=== PATIENT | female | born 1995 | race African-American/Black ===

== ENCOUNTER 2023-02-15 16:06 | Emergency (ER) | payer MEDICAID ==
[~2023-02-15] VITALS: Ht 157.5 cm; Wt 82.0 kg
[2023-02-15 16:21] VITALS: PULSE 108
[2023-02-15 16:33] VITALS: BP 126/82; RESP 16; TEMP 99; O2SAT 99
== END 2023-02-15 19:35 | disposition home or self-care (01) ==
LOC: ER 16:06
DX: H00.11 Chalazion right upper eyelid (principal); Z88.8 Allergy status to other drugs, medicaments and biological substances; Z98.890 Other specified postprocedural states
CPT/HCPCS: 99282

== ENCOUNTER 2023-09-07 00:55 | Emergency (ER) | payer MEDICAID ==
[~2023-09-07] VITALS: Ht 167.6 cm; Wt 82.0 kg
[2023-09-07 01:00] VITALS: O2SAT 99
[2023-09-07 01:26] LABS: BASOPHILS % 0.4 % (0.0-2.0); CHLORIDE 107 mEq/L (98-107); DIFFERENTIAL COMMENT 0; HEMATOCRIT. 37.9 % (36.0-48.0); HEMOGLOBIN. 12.5 g/dL (12.0-16.0); LYMPHOCYTES % 29.1 % (20.0-50.0); MEAN CORPUSCULAR HEMOGLOBIN 23.5 pg (28.0-32.0); MEAN CORPUSCULAR HGB CONC 32.9 g/dL (31.0-37.0); MEAN CORPUSCULAR VOLUME 71.2 fL (81.0-99.0); MEAN PLATELET VOLUME 8.6 fl (7.4-10.4); NEUTROPHILS % 63.5 % (40.0-76.0); PLATELET 236 x1000/uL (130-400); POTASSIUM 3.7 mEq/L (3.5-5.1); RED BLOOD CELL COUNT 5.32 mill/uL (4.2-5.4); RED CELL DISTRIBUTION WIDTH 14.4 % (11.6-14.6); SODIUM 137 mEq/L (136-145); WHITE BLOOD COUNT 6.7 x1000/uL (4.5-11.0)
[2023-09-07 01:27] LABS: CARBON DIOXIDE 21 mEq/L (21-32)
[2023-09-07] MEDS ORDERED: ACTIVATED CHARCOAL 50 G/240 ML TUBE PO ONE (01:30)
[2023-09-07 01:32] LABS: CREATININE 0.9 mg/dL (0.6-1.0); GLUCOSE 89 mg/dL (70-105)
[2023-09-07 01:33] LABS: ETHANOL BLOOD < 10 mg/dL (<10); UREA NITROGEN BLOOD 14 mg/dL (9-23)
[2023-09-07 01:34] LABS: ALANINE AMINOTRANSFERASE 16 IU/L (10-49)
[2023-09-07 01:35] LABS: ACETAMINOPHEN < 2 ug/mL (10-30); ALBUMIN 4.3 g/dL (3.2-4.8); AMMONIA < 17 uMol/L (<32); ASPARTATE AMINOTRANSFERASE 15 IU/L (<34); BILIRUBIN TOTAL 0.4 mg/dL (0.1-1.0); HCG SCREEN NEGATIVE; PROTEIN TOTAL 7.2 g/dL (6.0-8.3)
[2023-09-07] MEDS: SODIUM CHLORIDE 0.9% 1,000 ML IV ONE (02:04)
[2023-09-07] MEDS: ACTIVATED CHARCOAL 50 G/240 ML TUBE PO NR (02:11)
[2023-09-07 02:18] LABS: CLARITY URINE CLOUDY (CLEAR); COLOR URINE YELLOW (YELLOW); GLUCOSE URINE NEGATIVE (NEGATIVE); KETONES URINE TRACE (NEGATIVE); LEUKOCYTE ESTERASE URINE TRACE (NEGATIVE); NITRITE URINE NEGATIVE (NEGATIVE); OCCULT BLOOD URINE 2+ (NEGATIVE); PH URINE 5.5 (4.5-8.0); PROTEIN URINE NEGATIVE (NEGATIVE); SPECIFIC GRAVITY URINE 1.023 (1.005-1.030)
[2023-09-07 02:27] LABS: *AMPHETAMINES SCREEN URINE NEGATIVE (NEGATIVE); *BARBITURATES SCREEN URINE NEGATIVE (NEGATIVE); *BENZODIAZEPINES SCREEN URINE NEGATIVE (NEGATIVE); *COCAINE SCREEN URINE NEGATIVE (NEGATIVE)
[2023-09-07 02:28] LABS: CANNABINOID URINE SCREEN PRESUMPTIVE POSITIVE (NEGATIVE); ECSTASY MDMA SCREEN URINE NEGATIVE (NEGATIVE); METHADONE URINE SCREEN NEGATIVE (NEGATIVE); OPIATES URINE SCREEN NEGATIVE (NEGATIVE); PHENCYCLIDINE URINE SCREEN NEGATIVE (NEGATIVE)
[2023-09-07 05:20] LABS: SQUAMOUS EPITHELIAL CELL URINE 3+ /lpf (RARE/1+)
[2023-09-07 05:25] LABS: BACTERIA URINE 2+
[2023-09-07] MEDS: IBUPROFEN 800MG TABLET PO ONE (23:58)
[2023-09-07] MEDS: LORAZEPAM 2MG/ML INJ IM ONE (23:58)
[2023-09-08] MEDS: LORAZEPAM 2MG/ML INJ IM ONE (19:59)
[2023-09-08] MEDS: DIPHENHYDRAMINE 50MG/ML VIAL IM ONE (19:59)
[2023-09-08] MEDS: HALOPERIDOL LACTATE 5MG/ML VIAL IM ONE (19:59)
[2023-09-08] MEDS: IBUPROFEN 800MG TABLET PO ONE (21:25)
[2023-09-09] MEDS: ACETAMINOPHEN 325MG TABLET PO ONE (16:57)
[2023-09-09 20:25] VITALS: BP 112/74; PULSE 79; RESP 14; TEMP 98.1
== END 2023-09-09 20:45 ==
LOC: ER 01:03
DX: T43.592A Poisoning by other antipsychotics and neuroleptics, intentional self-harm, initial encounter (principal); R45.851 Suicidal ideations; F41.9 Anxiety disorder, unspecified; Z20.822 Contact with and (suspected) exposure to COVID-19; Y92.89 Other specified places as the place of occurrence of the external cause
CPT/HCPCS: 80053; 80305; 81003; 80307; 80329; 80320; 82140; 84703; 85025; 36415; 93005; 96360; 96372 ×2; 99285; 87426; J2060 ×2; J7030; J1200; J1630; G0480